=== PATIENT | female | born 1960 | race Caucasian/White ===

== ENCOUNTER → 2017-08-25 10:06 | Outpatient (CLI) | payer OTHER, SELFPAY ==
--- NOTE | 2017-08-25 | DI.RAD.S_ITS ---
PROCEDURE: XR HAND RT MIN 3V INDICATIONS: BILATERAL THUMB PAIN TECHNIQUE: 3 views of the hand(s) acquired. COMPARISON: None. FINDINGS: Bones: No fractures or dislocations. Carpal bones are normally aligned. No suspicious bony lesions. Arthritis is present involving the basilar joint of the thumb. There is a prominent erosion at the lateral base of the first metacarpal. Mild triscaphe degeneration. Soft tissues: No suspicious soft tissue calcifications. 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 on 08/25/2017 at 11:33 Approved by: Candelario Wood M.D. on 08/25/2017 at 11:35
--- NOTE | 2017-08-25 | DI.RAD.S_ITS ---
PROCEDURE: XR HAND LT MIN 3V INDICATIONS: BILATERAL THUMB PAIN TECHNIQUE: 3 views of the hand(s) acquired. COMPARISON: None. FINDINGS: Bones: No fractures or dislocations. Carpal bones are normally aligned. No suspicious bony lesions. There is advanced arthritis at the basilar joint of the thumb. Small subcortical cyst is present in the greater multangular laterally. Soft tissues: No suspicious soft tissue calcifications. IMPRESSION: Osteoarthritis basilar joint of the thumb Dictated by: Candelario Wood M.D. on 08/25/2017 at 11:31 Approved by: Candelario Wood M.D. on 08/25/2017 at 11:33
== END ==
PROVIDERS: Visit Provider Nurse Practitioner Family
DX: M19.042 Primary osteoarthritis, left hand (principal)
CPT/HCPCS: 73130

== ENCOUNTER 2019-08-21 16:00 | Emergency (ER) | payer OTHER, SELFPAY ==
--- NOTE | 2019-08-21 16:03 | ED.GENADULT ---
HPI - General Adult General Chief complaint: Eye Problems Stated complaint: Branch poked left eye Time Seen by Provider: 08/21/19 16:02 Source: patient Mode of arrival: Ambulatory Limitations: no limitations History of Present Illness HPI narrative: 58-year-old female here for evaluation of left eye injury. Patient states she was outside in her yd doing yd work when a branch came up and hit her in the left eye. She was not wearing eye protection at the time. She does wear corrective lenses but is not currently wearing them. Does not were contacts. No prior history of eye surgical procedures. Has not tried anything for symptoms prior to arrival. Related Data Home Medications Medication Instructions Recorded Confirmed aspirin 81 mg PO QDAY #0 05/03/17 08/19/18 Previous Rx's Medication Instructions Recorded erythromycin 0.5 inch EYE-LEFT QID #3.5 gram 08/21/19 Allergies Allergy/AdvReac Type Severity Reaction Status Date / Time No Known Allergies Allergy Uncoded 07/15/17 12:50 Review of Systems Constitutional Constitutional: Denies fever(s) and Denies headache(s) Eyes Eyes: Denies diplopia Comments: Left eye pain and irritation ENT Ears, Nose, Mouth, and Throat: Denies headache(s) and Denies sore throat Integumentary/Breasts Skin/Breast: Denies lesions and Denies rash Neurologic Neurologic: Denies behavioral changes and Denies headache(s) Psychiatric Psychiatric: Denies behavioral changes Hematologic/Lymphatic Hematologic/Lymphatic: Denies easy bleeding and Denies easy bruising Patient History Medical History Healthy adult (Acute) Social History Smoking Status: Never smoker Smoking Status: Never smoker Exam Initial Vital Signs Initial Vital Signs: Vital Signs Temperature 98.2 F 08/21/19 16:07 Pulse Rate 89 08/21/19 16:07 Respiratory Rate 18 08/21/19 16:07 Blood Pressure 133/90 08/21/19 16:07 Pulse Oximetry 96 08/21/19 16:07 Const General: cooperative, healthy appearing, comfortable and well developed Limitations: mental status not altered HENMT Head: normal to inspection and normocephalic Nose: external nose normal Face and sinus: normal facial exam Eyes General: appearance normal, both eyes and all related structures Eyelids: eyelids normal Conjunctivae: conjunctivae normal Sclera: sclerae normal Cornea: corneas abnormal on the left fluorescein used and abrasion linear and fluorescein used Pupils: PERRL EOM: EOM intact bilaterally Resp Effort & Inspection: normal respiratory effort Skin Lesions: no lesions Rashes: no rashes Extrem General: capillary refill normal Course Orders Ordered: Discontinued Medications Erythromycin (Erythromycin Ophth Oint) 1 applic EYE-LEFT NOW ONE Stop: 08/21/19 16:12 Last Admin: 08/21/19 16:15 Dose: 1 applic Documented by: SUSI Fluorescein Sodium (Ful-Jaz) 1 mg EYE-BOTH NOW ONE Stop: 08/21/19 16:03 Last Admin: 08/21/19 16:09 Dose: 1 mg Documented by: SUSI Proparacaine HCl (Parcaine 0.5% Ophth Shantelle) 1 drops EYE-LEFT NOW ONE Stop: 08/21/19 16:03 Last Admin: 08/21/19 16:09 Dose: 1 drop Documented by: SUSI Vital Signs Vital signs: Vital Signs - 8 hr 08/21/19 16:07 Temperature 98.2 F Pulse Rate 89 Respiratory Rate 18 Blood Pressure 133/90 Pulse Oximetry 96 Medical Decision Making MDM Narrative Medical decision making narrative: No foreign body noted with eversion and inversion of the eyelids. There are 2 small linear abrasions on the left cornea noted on the floor seen. There is no indication that this is an open globe. Visual acuity noted. Patient had a great improvement of symptoms after the proparacaine drops. Was given erythromycin ointment. Discussed return precautions and follow-up instructions. She expressed understanding and agreement. Discharge Plan Departure Patient Disposition: Home Clinical Impression: Corneal abrasion Qualifiers: Encounter type: initial encounter Laterality: left Qualified Code(s): S05.02XA - Injury of conjunctiva and corneal abrasion without foreign body, left eye, initial encounter Discharge Date/Time: 08/21/19 16:35 Instructions: DI for Corneal Abrasion Activity Restrictions/Additional Instructions: You can take Tylenol and/or ibuprofen for any discomfort. Use the antibiotic ointment like we discussed in as directed. Return to the emergency department for any new or worsening symptoms Prescriptions: New erythromycin 5 mg/gram (0.5 %) ointment 0.5 inch EYE-LEFT QID Qty: 3.5 RF: 0 No Action aspirin 81 MG tablet,delayed release (DR/EC) 81 mg PO QDAY Qty: 0 RF: 0
[2019-08-21 16:07] VITALS: BP 133/90; PULSE 89; RESP 18; TEMP 36.8; O2SAT 96
[2019-08-21] MEDS: PROPARACAINE 0.5% OPHTH SOL 1 DROPS EYE-LEFT (16:09)
[2019-08-21] MEDS: FLUORESCEIN 1 MG STRIP EYE-BOTH (16:09)
[2019-08-21] MEDS: ERYTHROMYCIN OPHTH 1 GM OINT 1 APPLIC EYE-LEFT (16:15)
== END 2019-08-21 16:35 | disposition home or self-care (01) ==
PROVIDERS: Emergency Provider Emergency Medicine
DX: S05.02XA Injury of conjunctiva and corneal abrasion without foreign body, left eye, initial encounter (principal); W22.8XXA Striking against or struck by other objects, initial encounter
CPT/HCPCS: 99282

== ENCOUNTER 2019-08-25 11:40 | Emergency (ER) | payer OTHER, SELFPAY ==
[2019-08-25 11:42] VITALS: BP 121/84; PULSE 72; RESP 14; TEMP 36.9; O2SAT 96; BMI 25.8
[2019-08-25] MEDS: PROPARACAINE 0.5% OPHTH SOL 1 DROPS EYE-LEFT (11:53)
[2019-08-25] MEDS: FLUORESCEIN 1 MG STRIP EYE-BOTH (11:53)
--- NOTE | 2019-08-25 12:09 | ED.GENADULT ---
HPI - General Adult General Chief complaint: Eye Problems Stated complaint: Left eye re-checked from last ER visit.. Time Seen by Provider: 08/25/19 11:44 Source: patient Mode of arrival: Ambulatory Limitations: no limitations History of Present Illness HPI narrative: 58-year-old female arrived today for re-evaluation of left eye irritation. I evaluated this patient approximately 4 days ago diagnosed with a left-sided corneal abrasion. Sent home on erythromycin ointment. She called me this morning stating that her high symptoms were not improving and potentially worsening. She then told me that she has remembered that she could potentially be allergic to erythromycin. She also stated that she was concerned about potentially having a corneal ulcer. I informed her that she should return to the emergency department. She reports that the left eye continues to be irritated. Some blurry vision but otherwise no other symptoms. No other rashes. No headache. Related Data Home Medications Medication Instructions Recorded Confirmed aspirin 81 mg PO QDAY #0 05/03/17 08/19/18 Previous Rx's Medication Instructions Recorded erythromycin 0.5 inch EYE-LEFT QID #3.5 gram 08/21/19 Allergies Allergy/AdvReac Type Severity Reaction Status Date / Time Sulfa (Sulfonamide Allergy Verified 08/25/19 11:45 Antibiotics) Review of Systems Constitutional Constitutional: Denies fever(s) and Denies headache(s) Eyes Eyes: Reports itchy eyes Comments: Left eye irritation with blurry vision ENT Ears, Nose, Mouth, and Throat: Denies headache(s), Denies sinus pressure and Denies sore throat Cardiovascular Cardiovascular: Denies chest pain and Denies dyspnea Respiratory Respiratory: Denies dyspnea Integumentary/Breasts Skin/Breast: Denies lesions and Denies rash Neurologic Neurologic: Denies behavioral changes and Denies headache(s) Psychiatric Psychiatric: Denies behavioral changes Allergic/Immunologic Allergic/Immunologic: Denies urticaria and Reports itchy eyes Patient History Medical History Corneal abrasion (Inactive) Healthy adult (Acute) Social History Smoking Status: Never smoker Smoking Status: Never smoker alcohol intake frequency: 0-2 drinks per day Substance Use Type: does not use Exam Initial Vital Signs Initial Vital Signs: Vital Signs Temperature 98.4 F 08/25/19 11:42 Pulse Rate 72 08/25/19 11:42 Respiratory Rate 14 08/25/19 11:42 Blood Pressure 121/84 08/25/19 11:42 Pulse Oximetry 96 08/25/19 11:42 Const General: cooperative and comfortable Limitations: mental status not altered HENOR Head: normal to inspection and normocephalic Nose: external nose normal Face and sinus: normal facial exam Mouth: oral mucosae normal Eyes Periorbital: periorbital findings normal Eyelids: eyelids normal Sclera: scleral abnormality left scleral injection lateral Cornea: corneas normal Pupils: PERRL EOM: EOM intact bilaterally Resp Effort & Inspection: normal respiratory effort Skin Lesions: no lesions Rashes: no rashes Neuro General: alert and awake Cognition: normal cognition Speech: speech normal Extrem General: normal to inspection and capillary refill normal Course Orders Ordered: Discontinued Medications Fluorescein Sodium (Ful-Jaz) 1 mg EYE-BOTH NOW ONE Stop: 08/25/19 11:45 Last Admin: 08/25/19 11:53 Dose: 1 mg Documented by: JIM Proparacaine HCl (Parcaine 0.5% Ophth Shantelle) 1 drops EYE-LEFT NOW ONE Stop: 08/25/19 11:45 Last Admin: 08/25/19 11:53 Dose: 1 drop Documented by: JIM Vital Signs Vital signs: Vital Signs - 8 hr 08/25/19 11:42 Temperature 98.4 F Pulse Rate 72 Respiratory Rate 14 Blood Pressure 121/84 Pulse Oximetry 96 Medical Decision Making [facility] Narrative Medical decision making narrative: Patient does have uptake of fluorescein on the temporal aspect of the left conjunctiva/sclera. The 2 linear corneal abrasions that were seen earlier this week are no longer present. Unsure if her symptoms today are related to worsening abrasion/ulcerations versus other infectious etiology or potentially inflammation secondary to using the erythromycin which she now thinks she has potentially allergic to. I did discuss the case with Dr. thornton with Ophthalmology who rectum send the patient to the ophthalmology office for further evaluation. I did discuss this with the patient. She was discharged the ophthalmology office. Discharge Plan Departure Patient Disposition: Home Clinical Impression: Irritation of left eye Discharge Date/Time: 08/25/19 12:42 Activity Restrictions/Additional Instructions: The Ophthalmology Clinic here at [facility] would like to evaluate you. They do recommend that you go directly to their clinic after being discharged from the emergency department. I did discuss your case with Dr. Thornton. They should be expecting you. Prescriptions: No Action aspirin 81 MG tablet,delayed release (DR/EC) 81 mg PO QDAY Qty: 0 RF: 0 erythromycin 5 mg/gram (0.5 %) ointment 0.5 inch EYE-LEFT QID Qty: 3.5 RF: 0
== END 2019-08-25 12:42 | disposition home or self-care (01) ==
PROVIDERS: Emergency Provider Emergency Medicine
DX: H57.12 Ocular pain, left eye (principal)
CPT/HCPCS: 99281

== ENCOUNTER → 2020-04-03 10:55 | Outpatient (CLI) | payer OTHER, SELFPAY ==
--- NOTE | 2020-04-03 10:56 | DI.RAD.S_ITS ---
PROCEDURE: XR ANKLE LT MIN 3V INDICATIONS: rolled ankle 1 wk ago, r/o fracture TECHNIQUE: 3 views of the ankle were acquired. COMPARISON: None. FINDINGS: Bones: No fractures or dislocations. Ankle mortise is normally aligned. No suspicious bony lesions. Soft tissues: No tibiotalar joint effusion. Achilles tendon appears normal. IMPRESSION: No trauma found. Dictated by: David Soliman M.D. on 04/03/2020 at 11:23 Approved by: David Soliman M.D. on 04/03/2020 at 11:23
--- NOTE | 2020-04-03 10:56 | DI.RAD.S_ITS ---
PROCEDURE: XR FOOT LT MIN 3V INDICATIONS: rolled ankle 1 wk ago, r/o fracture TECHNIQUE: 3 views of the foot were acquired. COMPARISON: None. FINDINGS: Bones: No fractures or dislocations. No suspicious bony lesions. Soft tissues: No tibiotalar joint effusion. Achilles tendon appears normal. IMPRESSION: Normal for age, source of current pain after trauma symptoms is not seen. Dictated by: David Soliman M.D. on 04/03/2020 at 11:23 Approved by: David Soliman M.D. on 04/03/2020 at 11:24
== END ==
PROVIDERS: Referring Provider Physician Assistant; Visit Provider Physician Assistant
DX: S99.912A Unspecified injury of left ankle, initial encounter (principal); X50.0XXA Overexertion from strenuous movement or load, initial encounter
CPT/HCPCS: 73610; 73630

== ENCOUNTER → 2021-02-26 15:14 | Outpatient (CLI) | payer OTHER, SELFPAY ==
--- NOTE | 2021-02-26 15:19 | DI.RAD.S_ITS ---
PROCEDURE: XR LUMBAR SPINE 2-3V INDICATIONS: LOW BACK/LUMBAR PAIN TECHNIQUE: 3 views of the lumbar spine were acquired. COMPARISON: None. FINDINGS: Bones: 5 [id number] vertebrae are present. Straightening of normal lumbar lordosis with minimal retrolisthesis of L1 on L2. There is gentle levocurvature of the thoracolumbar junction with reciprocal dextrocurvature of the lumbosacral junction. This is likely positional. No acute compression fractures. Moderate-severe multilevel lumbar spondylitic changes seen throughout the imaged spine. Findings are most pronounced at L1-L2 and L5-S1. There is moderate multilevel facet arthropathy involving the mid and lower lumbar spine. This is most severe at L4-5 and L5-S1. Degenerative changes of the bilateral sacroiliac joints. No suspicious bony lesions. Soft tissues: Overlying bowel gas pattern is normal. No suspicious soft tissue calcifications. IMPRESSION: Moderate-severe multilevel lumbar spondylosis most pronounced at L1-L2 and L5-S1. No acute radiographic abnormality seen. Dictated by: Travis De Los Santos M.D. on 02/26/2021 at 17:33 Approved by: Travis De Los Santos M.D. on 02/26/2021 at 17:36
== END ==
PROVIDERS: Referring Provider Chiropractor; Visit Provider Chiropractor
DX: M47.816 Spondylosis without myelopathy or radiculopathy, lumbar region (principal); M47.817 Spondylosis without myelopathy or radiculopathy, lumbosacral region; M99.13 Subluxation complex (vertebral) of lumbar region; M54.51 Vertebrogenic low back pain
CPT/HCPCS: 72100